=== PATIENT | male | born 1950 | race Caucasian/White ===

== ENCOUNTER 2024-10-12 16:55 | Inpatient (IN) | payer MEDICARE, BC ==
[~2024-10-12] VITALS: Ht 180.3 cm; Wt 100.7 kg
[2024-10-12 19:24] LABS: BASOPHILS # (AUTO) 0.1 K/UL (0.0-0.2); BASOPHILS % (AUTO) 0.5 % (0.0-2.0); EOSINOPHILS # (AUTO) 0.2 K/uL (0.0-0.7); EOSINOPHILS % (AUTO) 1.2 % (0.0-7.0); HEMATOCRIT 40.6 % (36.7-47.1); HEMOGLOBIN 13.3 g/dL (12.5-16.3); LYMPHOCYTES # (AUTO) 1.3 K/uL (0.8-4.8); LYMPHOCYTES % (AUTO) 7.6 % (20.5-51.5); MEAN CORPUSCULAR HEMOGLOBIN 29.3 uug (23.8-33.4); MEAN CORPUSCULAR HGB CONC 33 g/dL (32.5-36.3); MEAN CORPUSCULAR VOLUME 89.8 fL (73.0-96.2); MONOCYTES # (AUTO) 1.5 K/uL (0.1-1.30); NEUTROPHILS # (AUTO) 13.6 K/uL (1.8-8.9); NEUTROPHILS % (AUTO) 81.7 % (38.5-71.5); PLATELET COUNT (AUTO) 592 K/uL (152-348); RED BLOOD CELL COUNT(AUTO) 4.52 MIL/uL (4.06-5.63); WHITE BLOOD COUNT (AUTO) 16.6 K/uL (3.6-10.2)
[2024-10-12 19:29] LABS: DIFFERENTIAL COMMENT 1
[2024-10-12 19:34] LABS: CALCIUM 10.6 mg/dL (8.5-10.1); CARBON DIOXIDE 24 mmol/L (21-32); CHLORIDE 101 mmol/L (98-107); CREATININE 1.6 mg/dL (0.6-1.3); GLUCOSE 110 mg/dL (74-106); POTASSIUM 4.3 mmol/L (3.5-5.1); SODIUM SERUM 140 mmol/L (136-145); UREA NITROGEN, BLOOD 18 mg/dL (7-18)
[2024-10-12 19:40] LABS: ALANINE AMINOTRANSFERASE 21 U/L (16-63); ALBUMIN 3.2 g/dL (3.4-5.0); ALKALINE PHOSPHATASE 76 U/L (50-136); ASPARTATE AMINOTRANSFERASE 31 U/L (15-37); BILIRUBIN,DIRECT 0.2 mg/dL (0.0-0.2); BILIRUBIN,TOTAL 0.6 mg/dL (0.2-1.0); TOTAL PROTEIN, SERUM 8.3 g/dL (6.4-8.2)
[2024-10-12 19:41] LABS: ETHANOL < 3 MG/DL (0-10)
[2024-10-12 19:48] LABS: THYROID STIMULATING HORMONE 22.847 mIU/mL (0.358-3.740)
[2024-10-12 20:02] LABS: *BILIRUBIN,URIN 1+ (NEGATIVE); *BLOOD, URINE NEGATIVE (NEGATIVE); *CLARITY,URINE CLEAR (CLEAR); *COLOR,URINE YELLOW (YELLOW); *KETONES,URINE 1+ (NEGATIVE); *PROTEIN,URINE 2+ (NEGATIVE); *UROBILINOGEN,URINE 0.2 E.U./dl (NORMAL); LEUKOCYTE ESTERASE ,URINE NEGATIVE (NEGATIVE); NITRITE, URINE NEGATIVE (NEGATIVE); PH,URINE 5.5 (5.0-8.0); UGLUCOSE NEGATIVE (NEGATIVE)
[2024-10-12 20:03] LABS: RBC,URINE 0-3 /HPF (0-3); WBC,URINE 0-3 /HPF (0-3)
[2024-10-12 20:11] LABS: *AMPHETAMINE, URINE POSITIVE (NEGATIVE); *BARBITURATE, URINE NEGATIVE (NEGATIVE); *BENZODIAZEPINE, URINE POSITIVE (NEGATIVE); *CANNABINOID, URINE NEGATIVE (NEGATIVE); *COCCAINE, URINE NEGATIVE (NEGATIVE); *OPIATE, URINE POSITIVE (NEGATIVE); *PHENCYCLIDINE SCREEN,URINE NEGATIVE (NEGATIVE); FENTANYL, URINE NEGATIVE (NEGATIVE)
[2024-10-12] MEDS: IV NS 1000 ML 1,000 ML IV ONE (20:24)
[2024-10-12] MEDS ORDERED: VANCOMYCIN IV 1,500 MG in IV DEXTROSE 5% 250 ML IV ONE (20:30)
[2024-10-12] MEDS: CEFEPIME HCL 1 G in IV DEXTROSE 5% 50 ML IV ONE (20:30)
[2024-10-12] MEDS ORDERED: CEFEPIME HCL 1 G VIAL ONE (20:48)
[2024-10-12] MEDS ORDERED: VANCOMYCIN 1000 MG VIAL ONE (20:56)
[2024-10-12] MEDS ORDERED: VANCOMYCIN HCL 500 MG VIAL ONE (20:56)
[2024-10-12] MEDS ORDERED: levoFLOXacin 750MG/D5W 150 ML IV ONE (20:56)
[2024-10-12] MEDS ORDERED: VANCOMYCIN IV 1,500 MG in IV DEXTROSE 5% 500 ML IV ONE (21:00)
[2024-10-12] MEDS: levoFLOXacin 750 MG/D5W 150 ML PIGGYBACK IV ONE (21:11)
[2024-10-12] MEDS: METOPROLOL TARTRATE 50 MG TABLET PO ONE (21:15)
[2024-10-12] MEDS ORDERED: ACETAMINOPHEN 500 MG TABLET ONE (22:05)
[2024-10-12] MEDS ORDERED: LORAZEPAM 2 MG/1 ML VIAL ONE (22:06)
[2024-10-12] MEDS: LORAZEPAM 2 MG/1 ML VIAL IV ONE (22:18)
[2024-10-12] MEDS: ACETAMINOPHEN 500 MG TABLET PO ONE (22:19)
[2024-10-12] MEDS ORDERED: diphenhydrAMINE 50 MG/1 ML VIAL ONE (22:48)
[2024-10-12] MEDS: VANCOMYCIN IV 1,500 MG in IV DEXTROSE 5% 500 ML IV ONE (22:58)
[2024-10-12] MEDS: diphenhydrAMINE 50 MG/1 ML VIAL IV STA (23:04)
[2024-10-12 23:51] VITALS: BP 126/63; TEMP 98.2; O2SAT 95
[2024-10-13] MEDS: IV 1/2NS 1000 ML 1,000 ML IV PRN (00:22)
[2024-10-13] MEDS: TEMAZEPAM 15 MG CAPSULE PO PRN (00:22)
[2024-10-13] MEDS ORDERED: PIPERACILLIN/TAZOBACTAM/D5W 50 ML IV ONE (00:50)
[2024-10-13] MEDS: PIPERACILLIN SODIUM/TAZOBACTAM 3.375 G in IV DEXTROSE 5% 50 ML IV SCH (01:21)
[2024-10-13 05:40] VITALS: BP 140/82; TEMP 98.2; O2SAT 95
[2024-10-13] MEDS: PANTOPRAZOLE SODIUM 40 MG TABLET.DR PO SCH (06:03)
[2024-10-13] MEDS: HYDROCODONE/APAP 5-325MG TABLET PO PRN (06:03)
[2024-10-13 06:58] LABS: BASOPHILS # (AUTO) 0.1 K/UL (0.0-0.2); BASOPHILS % (AUTO) 1.1 % (0.0-2.0); EOSINOPHILS # (AUTO) 0.3 K/uL (0.0-0.7); EOSINOPHILS % (AUTO) 2.9 % (0.0-7.0); HEMATOCRIT 34.7 % (36.7-47.1); HEMOGLOBIN 11.4 g/dL (12.5-16.3); LYMPHOCYTES # (AUTO) 1.3 K/uL (0.8-4.8); LYMPHOCYTES % (AUTO) 10.9 % (20.5-51.5); MEAN CORPUSCULAR HEMOGLOBIN 29.2 uug (23.8-33.4); MEAN CORPUSCULAR HGB CONC 33 g/dL (32.5-36.3); MEAN CORPUSCULAR VOLUME 89.1 fL (73.0-96.2); MONOCYTES # (AUTO) 1.3 K/uL (0.1-1.30); MONOCYTES % (AUTO) 10.9 % (0.0-11.0); NEUTROPHILS # (AUTO) 8.6 K/uL (1.8-8.9); NEUTROPHILS % (AUTO) 74.2 % (38.5-71.5); PLATELET COUNT (AUTO) 505 K/uL (152-348); RED CELL DISTRIBUTION WIDTH 17.6 % (12.1-16.2); WHITE BLOOD COUNT (AUTO) 11.6 K/uL (3.6-10.2)
[2024-10-13 07:11] LABS: DIFFERENTIAL COMMENT 1
[2024-10-13 07:18] LABS: ALANINE AMINOTRANSFERASE 20 U/L (16-63); ALBUMIN 2.4 g/dL (3.4-5.0); ALKALINE PHOSPHATASE 62 U/L (50-136); ASPARTATE AMINOTRANSFERASE 22 U/L (15-37); BILIRUBIN,TOTAL 0.4 mg/dL (0.2-1.0); CALCIUM 8.9 mg/dL (8.5-10.1); CARBON DIOXIDE 27 mmol/L (21-32); CHLORIDE 103 mmol/L (98-107); CHOLESTEROL 124 mg/dL (<200); CREATININE 1.5 mg/dL (0.6-1.3); GLUCOSE 82 mg/dL (74-106); HDL CHOLESTEROL 42 mg/dL (40-60); MAGNESIUM 1.6 mg/dL (1.8-2.4); PHOSPHOROUS 3.3 mg/dL (2.5-4.9); SODIUM SERUM 138 mmol/L (136-145); TOTAL PROTEIN, SERUM 6.8 g/dL (6.4-8.2); TRIGLYCERIDES 86 MG/DL (30-150); UREA NITROGEN, BLOOD 18 mg/dL (7-18)
[2024-10-13 08:08] LABS: THYROID STIMULATING HORMONE 29.916 mIU/mL (0.358-3.740)
[2024-10-13] MEDS ORDERED: MELA3TAB41 PO (09:55)
[2024-10-13] MEDS ORDERED: ACET-2154 PO (09:55)
[2024-10-13] MEDS ORDERED: LEVO750T46 PO (09:55)
[2024-10-13] MEDS ORDERED: ALBU1.257 NEB (09:55)
[2024-10-13] MEDS ORDERED: HYDR-4209 PO (09:55)
[2024-10-13] MEDS: PIPERACILLIN SODIUM/TAZOBACTAM 3.375 G in IV DEXTROSE 5% 100 ML IV SCH (10:17)
[2024-10-13 10:53] VITALS: BP 142/69; TEMP 97.7; O2SAT 94
[2024-10-13] MEDS: MAGNESIUM OXIDE 400 MG TABLET PO ONE (14:15)
[2024-10-13 15:04] VITALS: BP 138/76; TEMP 97.6; O2SAT 95
[2024-10-13] MEDS: LORAZEPAM 1 MG TABLET PO PRN (15:04)
[2024-10-13] MEDS: DIVALPROEX 250 MG TABLET.DR PO SCH (16:31)
[2024-10-13 20:04] VITALS: BP 103/46; TEMP 98.3; O2SAT 95
[2024-10-13] MEDS: QUETIAPINE FUMARATE 25 MG TABLET PO SCH (20:37)
[2024-10-13] MEDS: DOCUSATE SODIUM 100 MG CAPSULE PO SCH (20:37)
[2024-10-13] MEDS ORDERED: DOCUSATE SODIUM 250 MG CAPSULE PO SCH (21:00)
[2024-10-14 06:00] VITALS: BP 111/49; TEMP 98.6; O2SAT 96
[2024-10-14] MEDS: ACETAMINOPHEN 325 MG TABLET PO PRN (06:27)
[2024-10-14 07:02] LABS: BASOPHILS # (AUTO) 0.1 K/UL (0.0-0.2); BASOPHILS % (AUTO) 0.6 % (0.0-2.0); EOSINOPHILS # (AUTO) 0.3 K/uL (0.0-0.7); EOSINOPHILS % (AUTO) 1.5 % (0.0-7.0); HEMATOCRIT 35.2 % (36.7-47.1); HEMOGLOBIN 11.5 g/dL (12.5-16.3); LYMPHOCYTES # (AUTO) 0.9 K/uL (0.8-4.8); MEAN CORPUSCULAR HEMOGLOBIN 29.8 uug (23.8-33.4); MEAN CORPUSCULAR HGB CONC 33 g/dL (32.5-36.3); MEAN CORPUSCULAR VOLUME 91.3 fL (73.0-96.2); MONOCYTES # (AUTO) 1.7 K/uL (0.1-1.30); MONOCYTES % (AUTO) 9.9 % (0.0-11.0); NEUTROPHILS # (AUTO) 14.4 K/uL (1.8-8.9); PLATELET COUNT (AUTO) 425 K/uL (152-348); RED BLOOD CELL COUNT(AUTO) 3.85 MIL/uL (4.06-5.63); RED CELL DISTRIBUTION WIDTH 16.7 % (12.1-16.2); WHITE BLOOD COUNT (AUTO) 17.3 K/uL (3.6-10.2)
[2024-10-14 07:18] LABS: ALANINE AMINOTRANSFERASE 17 U/L (16-63); ALBUMIN 2.3 g/dL (3.4-5.0); ALKALINE PHOSPHATASE 57 U/L (50-136); ASPARTATE AMINOTRANSFERASE 22 U/L (15-37); BILIRUBIN,TOTAL 0.6 mg/dL (0.2-1.0); CALCIUM 8.7 mg/dL (8.5-10.1); CARBON DIOXIDE 27 mmol/L (21-32); CHLORIDE 105 mmol/L (98-107); CREATINE KINASE, TOTAL 36 U/L (39-308); CREATININE 1.6 mg/dL (0.6-1.3); DIFFERENTIAL COMMENT 1; GLUCOSE 140 mg/dL (74-106); MAGNESIUM 1.7 mg/dL (1.8-2.4); PHOSPHOROUS 2.3 mg/dL (2.5-4.9); POTASSIUM 4.1 mmol/L (3.5-5.1); SODIUM SERUM 140 mmol/L (136-145); TOTAL PROTEIN, SERUM 6.5 g/dL (6.4-8.2); UREA NITROGEN, BLOOD 15 mg/dL (7-18)
[2024-10-14 11:00] VITALS: BP 141/54; TEMP 97.6; O2SAT 92
[2024-10-14 15:16] VITALS: BP 116/55; TEMP 98.2; O2SAT 92
[2024-10-14 16:07] LABS: BASOPHILS # (AUTO) 0.1 K/UL (0.0-0.2); BASOPHILS % (AUTO) 0.7 % (0.0-2.0); EOSINOPHILS # (AUTO) 0.4 K/uL (0.0-0.7); EOSINOPHILS % (AUTO) 1.7 % (0.0-7.0); HEMOGLOBIN 11.2 g/dL (12.5-16.3); LYMPHOCYTES # (AUTO) 0.9 K/uL (0.8-4.8); LYMPHOCYTES % (AUTO) 4.1 % (20.5-51.5); MEAN CORPUSCULAR HEMOGLOBIN 29.2 uug (23.8-33.4); MEAN CORPUSCULAR HGB CONC 32 g/dL (32.5-36.3); MONOCYTES # (AUTO) 2.1 K/uL (0.1-1.30); MONOCYTES % (AUTO) 9.4 % (0.0-11.0); NEUTROPHILS # (AUTO) 18.7 K/uL (1.8-8.9); NEUTROPHILS % (AUTO) 84.1 % (38.5-71.5); PLATELET COUNT (AUTO) 378 K/uL (152-348); RED BLOOD CELL COUNT(AUTO) 3.84 MIL/uL (4.06-5.63); RED CELL DISTRIBUTION WIDTH 17.6 % (12.1-16.2); WHITE BLOOD COUNT (AUTO) 22.3 K/uL (3.6-10.2)
[2024-10-14 16:27] LABS: DIFFERENTIAL COMMENT 1
[2024-10-14] MEDS: MAGNESIUM OXIDE 400 MG TABLET PO ONE (16:30)
[2024-10-14] MEDS: NEUTRA PHOS PACKET PO ONE (16:32)
[2024-10-14 18:11] VITALS: O2SAT 94
[2024-10-14] MEDS: IPRATROPIUM BROMIDE 0.5 MG/2.5 ML NEBU NEB SCH (18:11)
[2024-10-14] MEDS: ALBUTEROL SULFATE 2.5 MG/3 ML NEBU NEB SCH (18:11)
[2024-10-14 18:21] VITALS: O2SAT 96
[2024-10-14 19:00] VITALS: BP 127/68; TEMP 100.8; O2SAT 93
[2024-10-14] MEDS: HEPARIN SODIUM,PORCINE 5,000 UNITS/ML VIAL SQ SCH (21:17)
[2024-10-15] VITALS (8 sets, daily range): BP systolic 91–131; BP diastolic 42–61; TEMP 97.2–99.8; O2SAT 94–98
[2024-10-15 05:08] LABS: PTH, INTACT 26 pg/mL (15-65)
[2024-10-15 06:46] LABS: BASOPHILS # (AUTO) 0.1 K/UL (0.0-0.2); BASOPHILS % (AUTO) 0.7 % (0.0-2.0); EOSINOPHILS # (AUTO) 0.2 K/uL (0.0-0.7); EOSINOPHILS % (AUTO) 1.5 % (0.0-7.0); HEMOGLOBIN 11.5 g/dL (12.5-16.3); LYMPHOCYTES # (AUTO) 0.7 K/uL (0.8-4.8); LYMPHOCYTES % (AUTO) 4.1 % (20.5-51.5); MEAN CORPUSCULAR HEMOGLOBIN 28.8 uug (23.8-33.4); MEAN CORPUSCULAR HGB CONC 32 g/dL (32.5-36.3); MONOCYTES # (AUTO) 1.6 K/uL (0.1-1.30); NEUTROPHILS # (AUTO) 13.3 K/uL (1.8-8.9); NEUTROPHILS % (AUTO) 83.7 % (38.5-71.5); PLATELET COUNT (AUTO) 396 K/uL (152-348); RED CELL DISTRIBUTION WIDTH 17.1 % (12.1-16.2); WHITE BLOOD COUNT (AUTO) 15.9 K/uL (3.6-10.2)
[2024-10-15 07:00] LABS: CALCIUM 8.8 mg/dL (8.5-10.1); CARBON DIOXIDE 28 mmol/L (21-32); CHLORIDE 101 mmol/L (98-107); CREATININE 1.3 mg/dL (0.6-1.3); GLUCOSE 114 mg/dL (74-106); MAGNESIUM 1.6 mg/dL (1.8-2.4); PHOSPHOROUS 2.8 mg/dL (2.5-4.9); POTASSIUM 4.4 mmol/L (3.5-5.1); SODIUM SERUM 137 mmol/L (136-145); UREA NITROGEN, BLOOD 11 mg/dL (7-18)
[2024-10-15 07:14] LABS: DIFFERENTIAL COMMENT 1
[2024-10-15 08:29] LABS: ABG BASE EXCESS 0.2 mmol/L (-2.0-3.0); ABG HCO3 23.2 mmol/L (21.0-28.0); ABG PCO2 32.3 mmHg (35.0-48.0); ABG PH 7.474 (7.350-7.450); ABG PO2 56.7 mmHg (83.0-108.0); ABG TOTAL HEMOGLOBIN 11.6 G/dL (13.5-17.5); AaDO2 91.6 mmHg; COHb 1.3 % (0.5-1.5); MetHb 0.3 % (0.0-1.5); O2Hb 89.1 % (94.0-98.0)
[2024-10-15] MEDS: MAGNESIUM SULFATE/D5W 100 ML IV SCH (09:24)
[2024-10-15] MEDS: NYSTATIN CREAM 30 GM TUBE TOP SCH (13:45)
[2024-10-16] VITALS (12 sets, daily range): BP systolic 93–140; BP diastolic 36–65; TEMP 97.2–98.8; O2SAT 93–97
[2024-10-16] MEDS: TRAZODONE 100 MG TABLET PO PRN (01:16)
[2024-10-16] MEDS: QUETIAPINE FUMARATE 25 MG TABLET PO PRN (02:24)
[2024-10-16 06:24] LABS: BASOPHILS # (AUTO) 0.1 K/UL (0.0-0.2); BASOPHILS % (AUTO) 0.6 % (0.0-2.0); EOSINOPHILS # (AUTO) 0.2 K/uL (0.0-0.7); EOSINOPHILS % (AUTO) 1.3 % (0.0-7.0); HEMATOCRIT 34.7 % (36.7-47.1); HEMOGLOBIN 11.1 g/dL (12.5-16.3); LYMPHOCYTES # (AUTO) 0.7 K/uL (0.8-4.8); LYMPHOCYTES % (AUTO) 5.2 % (20.5-51.5); MEAN CORPUSCULAR HEMOGLOBIN 29.1 uug (23.8-33.4); MEAN CORPUSCULAR HGB CONC 32 g/dL (32.5-36.3); MEAN CORPUSCULAR VOLUME 90.5 fL (73.0-96.2); MONOCYTES # (AUTO) 1.6 K/uL (0.1-1.30); MONOCYTES % (AUTO) 11.7 % (0.0-11.0); NEUTROPHILS % (AUTO) 81.2 % (38.5-71.5); PLATELET COUNT (AUTO) 367 K/uL (152-348); RED BLOOD CELL COUNT(AUTO) 3.83 MIL/uL (4.06-5.63); RED CELL DISTRIBUTION WIDTH 17.1 % (12.1-16.2); WHITE BLOOD COUNT (AUTO) 13.5 K/uL (3.6-10.2)
[2024-10-16 06:33] LABS: CALCIUM 9.2 mg/dL (8.5-10.1); CARBON DIOXIDE 27 mmol/L (21-32); CHLORIDE 105 mmol/L (98-107); CREATININE 1.4 mg/dL (0.6-1.3); GLUCOSE 99 mg/dL (74-106); POTASSIUM 4.1 mmol/L (3.5-5.1); SODIUM SERUM 141 mmol/L (136-145); UREA NITROGEN, BLOOD 12 mg/dL (7-18)
[2024-10-16 06:34] LABS: MAGNESIUM 1.9 mg/dL (1.8-2.4); PHOSPHOROUS 2.8 mg/dL (2.5-4.9)
[2024-10-16 06:37] LABS: DIFFERENTIAL COMMENT 1
[2024-10-16] MEDS: LORAZEPAM 2 MG/1 ML VIAL IM ONE (12:52)
[2024-10-16] MEDS: OLANZAPINE 10 MG VIAL IM ONE (12:54)
[2024-10-16] MEDS: DIVALPROEX 250 MG TABLET.DR PO SCH (13:00)
[2024-10-16] MEDS: AMITRIPTYLINE HCL 50 MG TABLET PO SCH (21:46)
[2024-10-17] VITALS (8 sets, daily range): BP systolic 98–144; BP diastolic 55–76; TEMP 97.3–98.5; O2SAT 91–97
[2024-10-17 06:23] LABS: BASOPHILS # (AUTO) 0.1 K/UL (0.0-0.2); BASOPHILS % (AUTO) 1.2 % (0.0-2.0); EOSINOPHILS # (AUTO) 0.4 K/uL (0.0-0.7); HEMATOCRIT 32.7 % (36.7-47.1); HEMOGLOBIN 10.7 g/dL (12.5-16.3); LYMPHOCYTES # (AUTO) 0.9 K/uL (0.8-4.8); LYMPHOCYTES % (AUTO) 9.9 % (20.5-51.5); MEAN CORPUSCULAR HEMOGLOBIN 29.7 uug (23.8-33.4); MEAN CORPUSCULAR HGB CONC 33 g/dL (32.5-36.3); MEAN CORPUSCULAR VOLUME 90.3 fL (73.0-96.2); MONOCYTES # (AUTO) 1.4 K/uL (0.1-1.30); MONOCYTES % (AUTO) 15.9 % (0.0-11.0); NEUTROPHILS # (AUTO) 6.1 K/uL (1.8-8.9); PLATELET COUNT (AUTO) 371 K/uL (152-348); RED BLOOD CELL COUNT(AUTO) 3.62 MIL/uL (4.06-5.63); RED CELL DISTRIBUTION WIDTH 16.7 % (12.1-16.2); WHITE BLOOD COUNT (AUTO) 8.9 K/uL (3.6-10.2)
[2024-10-17 06:44] LABS: CALCIUM 9.3 mg/dL (8.5-10.1); CARBON DIOXIDE 29 mmol/L (21-32); CHLORIDE 107 mmol/L (98-107); CREATININE 1.2 mg/dL (0.6-1.3); GLUCOSE 85 mg/dL (74-106); POTASSIUM 4.3 mmol/L (3.5-5.1); SODIUM SERUM 143 mmol/L (136-145); UREA NITROGEN, BLOOD 8 mg/dL (7-18)
[2024-10-17 06:45] LABS: MAGNESIUM 1.9 mg/dL (1.8-2.4); PHOSPHOROUS 3.6 mg/dL (2.5-4.9)
[2024-10-17 06:58] LABS: DIFFERENTIAL COMMENT 1
[2024-10-17 10:32] LABS: HIV-1 p24 ANTIGEN NON REACTIVE (NONREACTIVE); HIV-1/2 ANTIBODY NON REACTIVE (NONREACTIVE)
[2024-10-17 14:06] LABS: BAND % (MANUAL) 6 % (0-10); EOSINOPHILS % (MANUAL) 2 % (0-8); LYMPHOCYTES % (MANUAL) 12 % (20-40); MONOCYTES % (MANUAL) 16 % (2-10); NEUTROPHILS % (MANUAL) 64 % (42-75)
[2024-10-17 14:07] LABS: ANISOCYTOSIS 1+; PLATELET ESTIMATE ADEQUATE
[2024-10-17 23:33] LABS: C-REACTIVE PROTEIN 16.51 mg/dL (0.00-0.30)
[2024-10-18] VITALS (12 sets, daily range): BP systolic 125–143; BP diastolic 65–82; TEMP 97.8–98.4; O2SAT 93–97
[2024-10-19] VITALS (9 sets, daily range): BP systolic 107–140; BP diastolic 62–76; TEMP 97.9–98; O2SAT 94–99
[2024-10-19 07:29] LABS: BASOPHILS # (AUTO) 0.1 K/UL (0.0-0.2); BASOPHILS % (AUTO) 1.3 % (0.0-2.0); EOSINOPHILS # (AUTO) 0.3 K/uL (0.0-0.7); EOSINOPHILS % (AUTO) 4.1 % (0.0-7.0); HEMATOCRIT 31.7 % (36.7-47.1); HEMOGLOBIN 10.3 g/dL (12.5-16.3); LYMPHOCYTES # (AUTO) 0.7 K/uL (0.8-4.8); LYMPHOCYTES % (AUTO) 9.6 % (20.5-51.5); MEAN CORPUSCULAR HEMOGLOBIN 29.8 uug (23.8-33.4); MEAN CORPUSCULAR HGB CONC 33 g/dL (32.5-36.3); MEAN CORPUSCULAR VOLUME 91.3 fL (73.0-96.2); MONOCYTES # (AUTO) 1.1 K/uL (0.1-1.30); MONOCYTES % (AUTO) 14.7 % (0.0-11.0); NEUTROPHILS # (AUTO) 5.2 K/uL (1.8-8.9); NEUTROPHILS % (AUTO) 70.3 % (38.5-71.5); PLATELET COUNT (AUTO) 354 K/uL (152-348); RED BLOOD CELL COUNT(AUTO) 3.48 MIL/uL (4.06-5.63); RED CELL DISTRIBUTION WIDTH 16.8 % (12.1-16.2); WHITE BLOOD COUNT (AUTO) 7.4 K/uL (3.6-10.2)
[2024-10-19 07:43] LABS: CARBON DIOXIDE 29 mmol/L (21-32); CHLORIDE 96 mmol/L (98-107); CREATININE 1.4 mg/dL (0.6-1.3); GLUCOSE 329 mg/dL (74-106); MAGNESIUM 1.7 mg/dL (1.8-2.4); PHOSPHOROUS 3.1 mg/dL (2.5-4.9); SODIUM SERUM 136 mmol/L (136-145); UREA NITROGEN, BLOOD 7 mg/dL (7-18)
[2024-10-19 07:54] LABS: DIFFERENTIAL COMMENT 1
[2024-10-19] MEDS: ONDANSETRON 4 MG/2 ML VIAL IV PRN (08:55)
[2024-10-19] MEDS: MAGNESIUM OXIDE 400 MG TABLET PO ONE (11:16)
[2024-10-19] MEDS: HYDROCODONE/APAP 10-325 MG TABLET PO PRN (13:05)
[2024-10-19 14:57] LABS: C-REACTIVE PROTEIN 9.23 mg/dL (0.00-0.30)
[2024-10-20] VITALS (10 sets, daily range): BP systolic 129–148; BP diastolic 66–90; TEMP 97.1–98.6; O2SAT 92–99
[2024-10-20 08:07] LABS: HEPATITIS B CORE AB, TOTAL Positive (Negative); HEPATITIS B SURFACE AB, QUAL Non Reactive (.); HEPATITIS B SURFACE AG Negative (Negative); HEPATITIS C VIRUS ANTIBODY Non Reactive (Non Reactive)
[2024-10-20] MEDS ORDERED: DIVALPROEX 250 MG TABLET.DR PO SCH (09:00)
[2024-10-20 10:11] LABS: CRYPTOCOCCUS AB, SERUM Negative (Negative)
[2024-10-20 15:07] LABS: *ANTI-SCLERODERMA-70 AB <0.2 AI (0.0-0.9); *RNP ANTIBODIES 0.5 AI (0.0-0.9); *SJOGREN'S ANTI-SS-A <0.2 AI (0.0-0.9); *SJOGREN'S ANTI-SS-B <0.2 AI (0.0-0.9); *SMITH ANTIBODIES <0.2 AI (0.0-0.9); ANTI-DNA(DS) AB, QN <1 IU/mL (0-9); ANTI-NUCLEAR AB DIRECT Negative (Negative)
[2024-10-20] MEDS: DIVALPROEX 500 MG TABLET.DR PO SCH (16:43)
[2024-10-20 22:06] LABS: COCCIDIOIDES CF SERUM Negative (Neg:<1:2)
[2024-10-21 05:55] VITALS: BP 117/73; TEMP 98.4; O2SAT 97
[2024-10-21 07:00] VITALS: O2SAT 92
[2024-10-21 07:10] VITALS: O2SAT 99
[2024-10-21 09:41] LABS: BASOPHILS # (AUTO) 0.1 K/UL (0.0-0.2); BASOPHILS % (AUTO) 1.4 % (0.0-2.0); EOSINOPHILS # (AUTO) 0.4 K/uL (0.0-0.7); EOSINOPHILS % (AUTO) 5.3 % (0.0-7.0); HEMATOCRIT 34.5 % (36.7-47.1); HEMOGLOBIN 11.1 g/dL (12.5-16.3); LYMPHOCYTES # (AUTO) 1.1 K/uL (0.8-4.8); LYMPHOCYTES % (AUTO) 15.1 % (20.5-51.5); MEAN CORPUSCULAR HEMOGLOBIN 29.2 uug (23.8-33.4); MEAN CORPUSCULAR HGB CONC 32 g/dL (32.5-36.3); MEAN CORPUSCULAR VOLUME 90.4 fL (73.0-96.2); MONOCYTES % (AUTO) 12.8 % (0.0-11.0); NEUTROPHILS # (AUTO) 4.8 K/uL (1.8-8.9); NEUTROPHILS % (AUTO) 65.4 % (38.5-71.5); PLATELET COUNT (AUTO) 343 K/uL (152-348); RED BLOOD CELL COUNT(AUTO) 3.82 MIL/uL (4.06-5.63); RED CELL DISTRIBUTION WIDTH 16.4 % (12.1-16.2); WHITE BLOOD COUNT (AUTO) 7.4 K/uL (3.6-10.2)
[2024-10-21 09:43] LABS: DIFFERENTIAL COMMENT 1
[2024-10-21 10:00] LABS: ALANINE AMINOTRANSFERASE 11 U/L (16-63); ALKALINE PHOSPHATASE 50 U/L (50-136); ASPARTATE AMINOTRANSFERASE 13 U/L (15-37); BILIRUBIN,TOTAL 0.2 mg/dL (0.2-1.0); CALCIUM 9.5 mg/dL (8.5-10.1); CARBON DIOXIDE 29 mmol/L (21-32); CHLORIDE 103 mmol/L (98-107); CREATININE 1.4 mg/dL (0.6-1.3); GLUCOSE 113 mg/dL (74-106); MAGNESIUM 1.8 mg/dL (1.8-2.4); PHOSPHOROUS 3.1 mg/dL (2.5-4.9); POTASSIUM 4.4 mmol/L (3.5-5.1); SODIUM SERUM 137 mmol/L (136-145); TOTAL PROTEIN, SERUM 6.6 g/dL (6.4-8.2); UREA NITROGEN, BLOOD 9 mg/dL (7-18)
[2024-10-21 11:28] VITALS: BP 139/71; TEMP 97.7; O2SAT 94
[2024-10-21] MEDS: HYDROCODONE/APAP 5-325MG TABLET PO ONE (11:58)
[2024-10-21 13:00] VITALS: O2SAT 95
[2024-10-21 13:10] VITALS: O2SAT 99
[2024-10-21] MEDS: PIPERACILLIN SODIUM/TAZOBACTAM 3.375 G in IV DEXTROSE 5% 50 ML IV SCH (13:47)
[2024-10-21] MEDS ORDERED: PANT40TA49 PO (14:31)
[2024-10-21] MEDS ORDERED: LEVO25TA9 PO (14:31)
[2024-10-21] MEDS ORDERED: DIVA-78 PO (14:31)
[2024-10-21] MEDS ORDERED: AMIT50TA17 PO (14:31)
[2024-10-21] MEDS ORDERED: QUET25TA36 PO (14:31)
[2024-10-23 07:10] LABS: A/G RATIO 0.8 (0.7-1.7); ALBUMIN 2.6 g/dL (2.9-4.4); ALPHA-1-GLOBULIN 0.3 g/dL (0.0-0.4); ALPHA-2-GLOBULIN 0.7 g/dL (0.4-1.0); GAMMA GLOBULIN 1.2 g/dL (0.4-1.8); GLOBULIN, TOTAL 3.3 g/dL (2.2-3.9); M-SPIKE Not Observed g/dL (Not Observed); PROTEIN, TOTAL 5.9 g/dL (6.0-8.5)
== END 2024-10-21 15:15 | disposition home health service (06) | DRG 871 ==
LOC: ER 16:55 → MEDSURG3 22:01 → EDBD 22:01
PROVIDERS: ADMIT Internal Medicine
PROC: 05HB33Z Insertion of Infusion Device into Right Basilic Vein, Percutaneous Approach (ICD-10-PCS; principal; 2024-10-20)
DX: A41.9 Sepsis, unspecified organism (principal); G92.8 Other toxic encephalopathy; J69.0 Pneumonitis due to inhalation of food and vomit; J18.9 Pneumonia, unspecified organism; J96.01 Acute respiratory failure with hypoxia; N17.9 Acute kidney failure, unspecified; J44.0 Chronic obstructive pulmonary disease with (acute) lower respiratory infection; F03.911 Unspecified dementia, unspecified severity, with agitation; E44.0 Moderate protein-calorie malnutrition; D68.59 Other primary thrombophilia; R65.20 Severe sepsis without septic shock; D75.839 Thrombocytosis, unspecified; E03.9 Hypothyroidism, unspecified; M89.8X9 Other specified disorders of bone, unspecified site; F31.9 Bipolar disorder, unspecified; G89.29 Other chronic pain; S43.422A Sprain of left rotator cuff capsule, initial encounter; W19.XXXA Unspecified fall, initial encounter; Y92.89 Other specified places as the place of occurrence of the external cause; F17.210 Nicotine dependence, cigarettes, uncomplicated; E83.42 Hypomagnesemia; F39 Unspecified mood [affective] disorder; B36.9 Superficial mycosis, unspecified; M15.9 Polyosteoarthritis, unspecified; B35.6 Tinea cruris; R91.8 Other nonspecific abnormal finding of lung field; D64.9 Anemia, unspecified; D73.89 Other diseases of spleen; F15.10 Other stimulant abuse, uncomplicated; F11.10 Opioid abuse, uncomplicated; F13.10 Sedative, hypnotic or anxiolytic abuse, uncomplicated; Z88.1 Allergy status to other antibiotic agents; Z87.01 Personal history of pneumonia (recurrent); Z95.0 Presence of cardiac pacemaker; Z74.09 Other reduced mobility; Z68.31 Body mass index [BMI] 31.0-31.9, adult; D71 Functional disorders of polymorphonuclear neutrophils; R13.10 Dysphagia, unspecified
CPT/HCPCS: 36415; 36600; 70450; 71045; 71250; 73000; 73030; 76770; 80164; 82803; 83605; 83735; 83970; 84100; 84155; 84165; 84443; 84480; 84484; 85025; 86038; 86140; 86480; 86704; 86706; 86803; 87040; 87328; 87340; 87806; 94640; 94760; A4663; A9150; G0378; G0480; J0692; J1200; J1644; J1956; J2060; J2358; J2405; J2543; J3370; J3475; J3490; J3590; J7040; J7060